=== PATIENT | female | born 1955 | race Two or more races ===

== ENCOUNTER 2020-06-07 19:45 | Emergency (ER) | payer OTHER, BC ==
[~2020-06-07] VITALS: Ht 162.6 cm; Wt 64.9 kg
[2020-06-07 20:20] VITALS: Ht 162.6 cm; Wt 64.9 kg
[2020-06-07 22:37] VITALS: BP 152/88
== END 2020-06-07 22:37 | disposition home or self-care (01) ==
LOC: ED 19:45
DX: S16.1XXA Strain of muscle, fascia and tendon at neck level, initial encounter (principal); R51.9 Headache, unspecified; I10 Essential (primary) hypertension; H53.8 Other visual disturbances; V49.40XA Driver injured in collision with unspecified motor vehicles in traffic accident, initial encounter; Y93.I9 Activity, other involving external motion; Y99.8 Other external cause status; Y92.488 Other paved roadways as the place of occurrence of the external cause
CPT/HCPCS: 82962